=== PATIENT | male | born 1990 | race Asian ===

== ENCOUNTER 2019-03-30 04:30 | Emergency (ER) | payer SELFPAY ==
[~2019-03-30] VITALS: Ht 167.6 cm; Wt 54.4 kg
--- NOTE | 2019-03-30 04:30 | NUR ---
ED Nurse Note: Shyla requested.
[2019-03-30] MEDS ORDERED: LORazepam Inj 2mg/ml 1ml IV ONE (04:45)
--- NOTE | 2019-03-30 04:48 | NUR ---
ED Nurse Note: PT DEMARCO R61 FROM A RESIDENT, [facility], PT WAS TRYING TO JUMP OUT THE WINDOW PER EMS REPORT. PT'S BOYFRIEND WAS ON SCENE AND STATED THAT HE DIDN'T TAKE ANY DRUGS NOR DRINKING ALCOHOL. PT CURRENTLY UNABLE TO ANSWER QUESTIONS, SHOUTING RANDOM WORDS, AND DEMONSTRATING JUMPY BEHAVIORS. WILL CONT MONITOR.
[2019-03-30 04:50] VITALS: BP 153/93
[2019-03-30 04:53] LABS: APPEARANCE,URINE CLEAR; BASOPHILS % (AUTO) 2.3 % (0.0-2.0); BILIRUBIN, URINE NEGATIVE (NEGATIVE); COLOR,URINE PALE YELLOW; EOSINOPHILS % (AUTO) 2.7 % (0.0-3.0); GLUCOSE, URINE (UA) NEGATIVE (NEGATIVE); HEMATOCRIT 46.2 % (42.0-52.0); KETONES,URINE NEGATIVE (NEGATIVE); LEUKOCYTE ESTERASE ,URINE NEGATIVE (NEGATIVE); LYMPHOCYTES % (AUTO) 42.2 % (20.0-45.0); MEAN CORPUSCULAR VOLUME 93 FL (80-99); MONOCYTES % (AUTO) 6.8 % (1.0-10.0); NEUTROPHILS % (AUTO) 45.9 % (45.0-75.0); NITRITE,URINE NEGATIVE (NEGATIVE); PH,URINE 5 (4.5-8.0); PLATELET COUNT 243 K/UL (150-450); RED BLOOD COUNT 4.94 M/UL (4.70-6.10); RED CELL DISTRIBUTION WIDTH 11.1 % (11.6-14.8); UROBILINOGEN,URINE NORMAL MG/DL (0.0-1.0); WHITE BLOOD COUNT 8.2 K/UL (4.8-10.8)
[2019-03-30 04:59] LABS: PROTEIN,URINE NEGATIVE (NEGATIVE)
[2019-03-30 05:04] LABS: ANION GAP 11 mmol/L (5-15); BLOOD UREA NITROGEN 12 mg/dL (7-18); CALCIUM 9.3 MG/DL (8.5-10.1); CARBON DIOXIDE 25 MMOL/L (21-32); CHLORIDE 103 MMOL/L (98-107); CREATININE 1.3 MG/DL (0.55-1.30); POTASSIUM 2.9 MMOL/L (3.5-5.1); SODIUM 139 MMOL/L (136-145)
[2019-03-30 05:18] LABS: ALANINE AMINOTRANSFERASE 11 U/L (12-78); ALBUMIN 4.4 G/DL (3.4-5.0); ALBUMIN/GLOBULIN RATIO 1.1 (1.0-2.7); ALKALINE PHOSPHATASE 70 U/L (46-116); ASPARTATE AMINO TRANSFERASE 13 U/L (15-37); BILIRUBIN,TOTAL 0.3 MG/DL (0.2-1.0)
--- NOTE | 2019-03-30 05:18 | NUR ---
ED Nurse Note: pt now AA&ox4, gcs=15, pt states he cannot remember what happened, denies SI/HI, pt denies taking any drug. will cont monitor. safety precautions in place.
--- NOTE | 2019-03-30 05:20 | NUR ---
HAND-OFF: Report given to [facility].
--- NOTE | 2019-03-30 05:38 | Emergency Room Report ---
History of Present Illness General Chief Complaint: Behavioral Complaint Source: Patient, EMS Present Illness HPI Patient is a 29-year-old male brought in by EMS for increased bizarre behavior. Patient reportedly had been in an apartment with his boyfriend and had been reportedly threatening to jump from the building. Allergies: Coded Allergies: CODEINE (Verified Allergy, Unknown, 03/30/19) Patient History Reviewed Nursing Documentation: PMH: Agreed; PSxH: Agreed Nursing Documentation-PMH Past Medical History: No History, Except For Review of Systems All Other Systems: limited - By poor cooperation Physical Exam Vital Signs Date Time Temp Pulse Resp B/P (MAP) Pulse Ox O2 Delivery O2 Flow Rate FiO2 03/30/19 04:23 98.6 110 18 153/93 (113) 98 Room Air Sp02 EP Interpretation: reviewed, normal General Appearance: alert/responsive, no apparent distress, GCS 15, non-toxic Head: atraumatic Eyes: PERRL, lids + conjunctiva normal ENT: TMs + canals normal, hearing intact, no angioedema Neck: supple/symm/no masses, no meningismus Respiratory: effort normal, no wheezing, chest symmetrical Cardiovascular: regular rate, rhythm, no edema Cardiovascular #2: 2+ carotid (R), 2+ carotid (L), 2+ dorsalis pedis (R), 2+ dorsalis pedis (L) Gastrointestinal: non-tender, no mass, non-distended, no rebound/guarding, normal bowel sounds Musculoskeletal: gait & station normal, strength & tone normal, normal ROM, non -tender Neurologic: normal inspection, CN II-XII intact, oriented x3, sensory intact, normal speech Psychiatric: other - poorly cooperative, says I'm going through a lot and I don 't want to talk right now. Skin: no rash, well hydrated Lymphatic: normal inspection Medical Decision Making Diagnostic Impression: Primary Impression: Psychosis ER Course Patient presented for bizarre behavior. Differential diagnoses include substance abuse, psychosis, bipolar disorder, depression, malingering . Because of complexity of patient's case laboratory tests and imaging studies were ordered. Patient noted to have initial bizarre behavior. Laboratory testing as well as CT imaging were ordered. A urine drug screen was noted to be positive for marijuana. Patient does not appear to be intoxicated with alcohol. He was given IV Ativan due to agitation.CT of the head showed no evidence of acute intracranial pathology. Patient is medically cleared for psychiatric placement. Patient was noted to be placed on a 5150 hold by [employer]. Patient will be transferred to psychiatric faciliity for further psychiatric evaluation. Labs Test 03/30/19 04:41 White Blood Count 8.2 K/UL (4.8-10.8) Red Blood Count 4.94 M/UL (4.70-6.10) Hemoglobin 16.0 G/DL (14.2-18.0) Hematocrit 46.2 % (42.0-52.0) Mean Corpuscular Volume 93 FL (80-99) Mean Corpuscular Hemoglobin 32.4 PG (27.0-31.0) Mean Corpuscular Hemoglobin Concent 34.7 G/DL (32.0-36.0) Red Cell Distribution Width 11.1 % (11.6-14.8) Platelet Count 243 K/UL (150-450) Mean Platelet Volume 5.5 FL (6.5-10.1) Neutrophils (%) (Auto) 45.9 % (45.0-75.0) Lymphocytes (%) (Auto) 42.2 % (20.0-45.0) Monocytes (%) (Auto) 6.8 % (1.0-10.0) Eosinophils (%) (Auto) 2.7 % (0.0-3.0) Basophils (%) (Auto) 2.3 % (0.0-2.0) Urine Color Pale yellow Urine Appearance Clear Urine pH 5 (4.5-8.0) Urine Specific [place] 1.020 (1.005-1.035) Urine Protein Negative (NEGATIVE) Urine Glucose (UA) Negative (NEGATIVE) Urine Ketones Negative (NEGATIVE) Urine Blood Negative (NEGATIVE) Urine Nitrite Negative (NEGATIVE) Urine Bilirubin Negative (NEGATIVE) Urine Urobilinogen Normal MG/DL (0.0-1.0) Urine Leukocyte Esterase Negative (NEGATIVE) Sodium Level 139 MMOL/L (136-145) Potassium Level 2.9 MMOL/L (3.5-5.1) Chloride Level 103 MMOL/L (98-107) Carbon Dioxide Level 25 MMOL/L (21-32) Anion Gap 11 mmol/L (5-15) Blood Urea Nitrogen 12 mg/dL (7-18) Creatinine 1.3 MG/DL (0.55-1.30) Estimat Glomerular Filtration Rate > 60 mL/min (>60) Glucose Level 179 MG/DL (74-106) Calcium Level 9.3 MG/DL (8.5-10.1) Total Bilirubin 0.3 MG/DL (0.2-1.0) Aspartate Amino Transf (AST/SGOT) 13 U/L (15-37) Alanine Aminotransferase (ALT/SGPT) 11 U/L (12-78) Alkaline Phosphatase 70 U/L (46-116) Total Protein 8.3 G/DL (6.4-8.2) Albumin 4.4 G/DL (3.4-5.0) Globulin 3.9 g/dL Albumin/Globulin Ratio 1.1 (1.0-2.7) Thyroid Stimulating Hormone (TSH) 1.757 uiU/mL (0.358-3.740) Salicylates Level 1.0 ug/mL (2.8-20) Urine Opiates Screen Negative (NEGATIVE) Acetaminophen Level < 2 MCG/ML (10-30) Urine Barbiturates Screen Negative (NEGATIVE) Phencyclidine (PCP) Screen Negative (NEGATIVE) Urine Amphetamines Screen Negative (NEGATIVE) Urine Benzodiazepines Screen Negative (NEGATIVE) Urine Cocaine Screen Negative (NEGATIVE) Urine Marijuana (THC) Screen Positive (NEGATIVE) Serum Alcohol < 3 mg/dL Last Vital Signs Date Time Temp Pulse Resp B/P (MAP) Pulse Ox O2 Delivery O2 Flow Rate FiO2 03/30/19 04:50 98.6 110 18 153/93 98 Room Air Status: unchanged Disposition: XFER TO PSYCH HOSP/UNIT Condition: Stable Referrals: NOT CHOSEN COLETTE/,REFERRING (PCP) Trent Dean MD Mar 30, 2019 05:38
[2019-03-30] MEDS ORDERED: Thiamine HCl 100 MG in D5W 55 ML IVPB ONE (05:45)
--- NOTE | 2019-03-30 06:58 | Diagnostic Imaging Report ---
Indication: Headache Technique: Contiguous 5 mm thick transaxial imaging of the head obtained in a Siemens Sensation [address] scanner. Soft tissue and bone windows generated. Automatic Exposure Control was utilized. Total Dose length Product (DLP): 1544.[address] Dose Index Volume (CTDIvol): 70.38 mGy Comparison: none Findings: The size and configuration of the cortical sulci, basal cisterns, and ventricles are within normal limits for age. There is no mass effect, midline shift, or edema identified. There is no evidence of acute hemorrhage or abnormal intra-axial or extra-axial fluid collections. The bones and soft tissues are unremarkable. Impression: No mass effect, edema or acute bleed. [facility] has communicated the preliminary results to the Emergency Department. Their findings are largely concordant with this report. Study limited by motion The CT scanner at [facility] is accredited by the [place] [employer] and the scans are performed using dose optimization techniques as appropriate to a performed exam including Automatic Exposure control.
--- NOTE | 2019-03-30 07:51 | NUR ---
ED Nurse Note:pt. is sleeping, parent is visiting with him, sitter is in the room
--- NOTE | 2019-03-30 10:00 | NUR ---
ED Nurse Note:pt. is in the room, VSS, sitter is at the bed side
[2019-03-30 11:01] VITALS: BP 123/71
--- NOTE | 2019-03-30 12:00 | NUR ---
ED Nurse Note:pt. was provided with lunch, VSS, iv line was removed, sitter is at bed side
--- NOTE | 2019-03-30 14:00 | NUR ---
ED Nurse Note:sitter is at the bed side
--- NOTE | 2019-03-30 16:00 | NUR ---
ED Nurse Note:pt. is awake A/Ox4 ambulatory and compliant, sitter is at bed side
--- NOTE | 2019-03-30 19:08 | NUR ---
HAND-OFF: Report given to matt.
--- NOTE | 2019-03-30 19:15 | NUR ---
ED Nurse Note: RECIEVED REPORT TO [facility], PT IN BED AWAKE, ALERT AND ORIENTED X 4, PT MOTHER AT BEDSDIE, PT IS CURRENTLY CALM AND COOPERATIVE, DENIES PAIN OR ANY DISTRESS, PT IS ON 5150 HOLD, PT DOES DENY SI OR HI IDEATIONS OR HALLUCINATIONS, SITTER AT BEDSIDE PER PROTOCOL, WILL CONTINUE TO CLOSELY MONITOR PT WAITS FOR TRANSFER TO PSYCH FACILITY, ETA 2000.
[2019-03-30 20:30] VITALS: BP 123/80
--- NOTE | 2019-03-30 20:55 | NUR ---
ED Nurse Note: PLACED CALL TO JULIA AT [phone], REPORT FOR PT TRANSFER GIVEN TO [facility], AMBULANCE CHANGED ETA, PT INFORMED AND AWARE, ALL PERTINENT INFO GIVEN IN REPORT, PT CONTINUES TO REST QUIETLY IN BED, NO CHANGES OR DISTRESS NOTED, WILL CONTINUE TO CLOSELY MONITOR.
--- NOTE | 2019-03-30 22:32 | NUR ---
Spoke with Fidencio at [facility]-another 10-15 min.
[2019-03-30 22:50] VITALS: BP 119/84
[2019-03-30 23:00] VITALS: BP 119/84
--- NOTE | 2019-03-30 23:00 | NUR ---
ER DISCHARGE NOTE: [facility][id number] has arrived for pt transport, report and transfer forms along with pt belongings given to spike driver clara, pt is awake, alert and oriented x 4, mother at bedside, pt denies pain, no sob or labored breathing, is calm and cooperative, nad noted during pt transport topsych facility.
== END 2019-03-30 23:00 ==
LOC: EDBD 04:30 → EMR 04:42
DX: F29 Unspecified psychosis not due to a substance or known physiological condition (principal); Z88.6 Allergy status to analgesic agent; F12.10 Cannabis abuse, uncomplicated
CPT/HCPCS: 36415; 70450; 80053; 80307; 81003; 84443; 85025; 96365; 96375; 99285; G0480; 80329; J8499